=== PATIENT | female | born 1950 | race Caucasian/White ===

== ENCOUNTER 2016-10-15 15:37 | Emergency (ER) | payer OTHER ==
[~2016-10-15] VITALS: Wt 63.5 kg
[2016-10-15] MEDS ORDERED: TRAM50TA2 PO (16:05)
--- NOTE | 2016-10-15 16:08 | ERD ---
ER Documentation Chief Complaint Date/Time DATE: 10/15/16 TIME: 16:06 Chief Complaint RIGHT WRIST PAIN FOR THE PAST 2 MONTHS. NO RECENT TRAUMA HPI This 66-year-old female complains of right wrist pain for last 2 months. She has a history of trauma. She saw her primary doctor last week who provided a x- ray copy with presumably no acute findings. She has an appointment with a specialist in 2 weeks. She denies any fevers, redness, restricted range of motion set mildly due to pain to flexion of her hands. Presented here primarily for pain despite ibuprofen hoping to see a specialist sooner. ROS All systems reviewed and are negative except as per history of present illness. Medications Home Meds Active Scripts Tramadol HCl (Tramadol HCl) 50 Mg Tablet, 50 MG PO Q4 Y for PAIN, #20 TAB Prov:KANDI MONK MD 10/15/16 PMhx/Soc Medical and Surgical Hx: pt denies Medical Hx History of Surgery: No Anesthesia Reaction: No Hx Neurological Disorder: No Hx Respiratory Disorders: No Hx Cardiac Disorders: No Hx Psychiatric Problems: No Hx Miscellaneous Medical Probl: No Hx Alcohol Use: No Hx Substance Use: No Hx Tobacco Use: No Smoking Status: Never smoker Physical Exam Vitals Vital Signs Date Time Temp Pulse Resp B/P Pulse Ox O2 Delivery O2 Flow Rate FiO2 10/15/16 15:42 98.2 86 20 151/76 98 Physical Exam Const: [] Alert, [id number] per Head: Atraumatic Eyes: Normal Conjunctiva ENT: Normal External Ears, Nose and Mouth. Neck: Full range of motion..~ No meningismus. Resp: Clear to auscultation bilaterally Cardio: Regular rate and rhythm, no murmurs Abd: Soft, non tender, non distended. Normal bowel sounds Skin: No petechiae or rashes Back: No midline or flank tenderness Ext: No cyanosis, or edema. Tenderness on the right wrist joint on the ulnar aspect. There is no deformities, deficits, erythema, warmth or effusion Neur: Awake and alert Psych: Normal Mood and Affect Procedures/MDM Patient presents with right wrist pain worsening over the last 2 months. She has signs and symptoms of likely tendinitis or possible cartilage injury. Signs and symptoms do not suggest fracture, dislocation at patient has had x- rays and has a pending specialist evaluation. Patient was placed in a right Velcro brace and was neurovascular intact of the brace. Patient will be given a trial of tramadol and instructions for ice at home instructed to continue follow-up with specialist as scheduled. She should return for fevers, redness, new worsening symptoms. No signs or symptoms of bacterial infection, fracture, dislocation, deficits, additional emergent causes of right wrist pain. Departure Diagnosis: Primary Impression: Pain in wrist Laterality: right Qualified Code: M25.531 - Right wrist pain Condition: Stable Patient Instructions: Arthralgia, Tendonitis Additional Instructions: See specialists as scheduled. Apply ice 3 times a day for 20 minutes at home. KANDI MONK MD October 15, 2016 16:08
[2016-10-15 16:51] VITALS: BP 117/62; PULSE 71; RESP 18; TEMP 98
== END 2016-10-15 17:00 | disposition home or self-care (01) ==
LOC: FTE 15:37
DX: M25.531 Pain in right wrist (principal)

== ENCOUNTER 2018-06-22 22:29 | Emergency (ER) | payer MEDICARE, OTHER ==
[~2018-06-22] VITALS: Wt 70.7 kg
[~2018-06-22 22:29] MED LIST: TRAM50TA2 PO
--- NOTE | 2018-06-22 23:12 | ERD ---
ER Documentation Chief Complaint Chief Complaint BILAT KNEE PAIN X'S 2 WEEKS. PAIN INCREASING X'S 2 DAYS HPI 67-year-old female presents here in emergency department for complaints of bilat eral knee pain is been going on for a week, more on the left than the right, throbbing pain, 6/10 scale, not better with anything. Patient denies any deformity. Patient denies any direct trauma in affected area. ROS All systems reviewed and are negative except as per history of present illness. Medications Home Meds Active Scripts Tramadol HCl (Tramadol HCl) 50 Mg Tablet, 50 MG PO Q4 PRN for PAIN, #20 TAB Prov:KANDI MONK MD 10/15/16 Allergies Allergies: Coded Allergies: No Known Allergy (Unverified , 10/15/16) PMhx/Soc Medical and Surgical Hx: pt denies Medical Hx, pt denies Surgical Hx History of Surgery: No Anesthesia Reaction: No Hx Neurological Disorder: No Hx Respiratory Disorders: No Hx Cardiac Disorders: No Hx Psychiatric Problems: No Hx Miscellaneous Medical Probl: No Hx Alcohol Use: No Hx Substance Use: No Hx Tobacco Use: No Smoking Status: Never smoker FmHx Family History: No diabetes, No coronary disease, No other Physical Exam Vitals Vital Signs Date Temp Pulse Resp B/P (MAP) Pulse Ox O2 O2 Flow FiO2 Time Delivery Rate 06/22/18 98.7 85 18 172/81 97 22:35 (111) Physical Exam GENERAL: The patient is well developed and appropriate for usual state of health, in no apparent distress. CHEST: Clear to auscultation bilaterally. There are no rales, wheezes or rhonchi. HEART: Regular rate and rhythm. No murmurs, clicks, rubs or gallops. No S3 or S4. ABDOMEN: Soft, nontender and nondistended. Good bowel sounds. No rebound or guarding. No gross peritonitis. No gross organomegaly or masses. No Angeles sign or McBurney point tenderness. BACK: No midline or flank tenderness. EXTREMITIES: Equal pulses bilaterally. There is no peripheral clubbing, cyanosis or edema. No focal swelling or erythema. Full range of motion. Grossly neurovascularly intact. NEURO: Alert and oriented. Cranial nerves 2-12 intact. Motor strength in all 4 extremities with 5/5 strength. Sensation grossly intact. Normal speech and gait. SKIN: There is no apparent rash or petechia. The skin is warm and dry. HEMATOLOGIC AND LYMPHATIC: There is no evidence of excessive bruising or lymphedema. No gross cervical, axillary, or inguinal lymphadenopathy. Results 24 hrs PROCEDURE: Bilateral knee x-ray CLINICAL INDICATION: Bilateral knee pain TECHNIQUE: AP, lateral and oblique views of both knees were obtained. 6 images COMPARISON: None FINDINGS: Right knee: Fractures: None. Lytic or blastic lesions: None Joint spaces: Medial compartment: Minimally narrowed. Mild marginal osteophytosis Lateral compartment: Maintained. Patellofemoral compartment: Maintained. Suprapatellar bursa: No visible fluid. Extra articular soft tissues: Unremarkable. Arterial calcifications: None. Left knee: Fractures: None. Lytic or blastic lesions: None Joint spaces: Medial compartment: Maintained. Mild marginal osteophytosis. Lateral compartment: Maintained. Patellofemoral compartment: Maintained. Suprapatellar bursa: No visible fluid. Extra articular soft tissues: Unremarkable. Arterial calcifications: None. IMPRESSION: 1. Radiographically mild osteoarthritis in the medial compartment of the left knee. 2. Radiographically mild osteoarthritis in the medial compartment of the right knee. RPTAT:AAJJ Physician Meena Date Time Electronically viewed and signed by Physician Meena on 06/22/2018 23:50 GW/ CC: REBECCA VALDEZ [employer] [id number] Procedures/MDM Medical Decision Making: Patient's pain is most likely consistent with a knee pain possibly caused by mild osteoarthritis is seen in the x-ray, no joint effusion noted.. There is no suspicion for neurovascular compromise. Patient has intact sensation and circulation of the affected extremity. There is low suspicion for septic arthritis. Patient does not have any fever. Radiology exams of the affected area does not show any fracture or dislocation. Disposition: Home. Patient is given prescription for tramadol for severe pain, continue NSAIDs given to her by her doctor. Patient was advised to elevate the affected area and apply ice on affected area. Patient was advised that if symptoms are worse, numbness, tingling, high fever, unable to move joint, worsening symptoms, to return to emergency department immediately. Otherwise, patient is advised to follow up with the primary care doctor in 5-7 days for reevaluation of symptoms. Disclaimer: Inadvertent spelling and grammatical errors are likely due to EHR/dictation software use and do not reflect on the overall quality of patient care. Also, please note that the electronic time recorded on this note does not necessarily reflect the actual time of the patient encounter. Departure Diagnosis: Primary Impression: Knee pain Chronicity: unspecified Laterality: bilateral Qualified Codes: M25.561 - Pain in right knee; M25.562 - Pain in left knee Additional Impression: Osteoarthritis Osteoarthritis location: knee Osteoarthritis type: primary Laterality: bilateral Qualified Codes: M17.0 - Bilateral primary osteoarthritis of knee Condition: Stable Patient Instructions: Knee Pain, Uncertain Cause, Osteoarthritis, Osteoarthritis: Coping with Pain Additional Instructions: Patient is given prescription for tramadol for severe pain, continue NSAIDs given to her by her doctor. Patient was advised to elevate the affected area and apply ice on affected area. Patient was advised that if symptoms are worse, numbness, tingling, high fever, unable to move joint, worsening symptoms, to return to emergency department immediately. Otherwise, patient is advised to follow up with the primary care doctor in 5-7 days for reevaluation of symptoms. REBECCA VALDEZ NP Jun 22, 2018 23:12
[2018-06-23] MEDS ORDERED: TRAM50TA2 PO (00:06)
[2018-06-23 00:24] VITALS: BP 136/65; PULSE 85; RESP 18
== END 2018-06-23 00:28 | disposition home or self-care (01) ==
LOC: FTE 22:29
DX: M25.561 Pain in right knee (principal); M25.562 Pain in left knee; M17.0 Bilateral primary osteoarthritis of knee
CPT/HCPCS: 99284